=== PATIENT | female | born 1960 | race Caucasian/White ===

== ENCOUNTER → 2017-02-17 | Day surgery (SDC) | payer OTHER ==
[~2017-02-17] MED LIST: BUPIVACAINE HCL PF 0.5% 10 ML VIAL ONE; CLINDAMYCIN PHOS 600 MG/4 ML VIAL ONE; KETOROLAC TROMETHAMINE 30 MG/ML (IVP) VIAL IV PUSH ONE; LACTATED RINGER'S 1000 ML INJ 1,000 ML ONE; MIDAZOLAM HCL 2 MG/2 ML VIAL ONE; NS 100 ML (PAB BAG) 100 ML IV ONE; ONDANSETRON HCL 4 MG/2 ML VIAL IV PUSH ONE; PROPOFOL 200 MG/20 ML AMP IV ONE; ceFAZolin 2 GM PREMIX 50 ML ONE
--- NOTE | 2017-02-17 12:01 | MP ---
cc: JESSICA ST DATE OF SURGERY 02/17/[address] Jessica [address] [employer] SUPERVISOR None. PREOPERATIVE DIAGNOSIS Left foot second metatarsophalangeal joint acute dislocation with plantar plate tear. POSTOPERATIVE DIAGNOSIS Left foot second metatarsophalangeal joint acute dislocation with plantar plate tear. PROCEDURES PERFORMED 1. Open reduction of second metatarsophalangeal joint 2. Plantar plate repair. PATHOLOGY SENT None. ANESTHESIA General. HEMOSTASIS Pneumatic ankle tourniquet at 250 mmHg. ESTIMATED BLOOD LOSS Less than 5 mL. MATERIALS USED Arthrex Viper plantar plate repair care with associated FiberWire, 3-0 Monocryl, 3-0 Prolene. INJECTABLES 10 cc of 0.5% Marcaine plain. COMPLICATIONS None. INDICATIONS Ms. Regalado is a patient well-known to me. She had acute dorsal hammertoe pain about six weeks ago and was provided with a hammertoe splint and a gel sleeve. She was at a concert approximately one week ago wearing the gel sleeve but not the hammertoe splint. She was doing an excessive amount of walking and felt a pop on the bottom of the foot. She then noted shortly after that some swelling and a dorsal medial dislocation of the second toe. She was seen in the office where I was able to do a hematoma block and close reduced the digit but she could not have surgery medially, she had a work event that felt was necessary for her to be at. She did attend this event with the toe taped an din a surgical shoe but it did re-dislocate. I explained to her today's procedure, the possible need to cut the bone if the plantar plate could not be accessed as well as the possible need to pin in the digit. The consent was signed. The procedure was explained. There were no guarantees given. PROCEDURE Under mild sedation the patient was brought into the operating room, placed on the operating table in a supine position. Following IV sedation, pneumatic ankle tourniquet was placed around the left ankle. The foot was then scrubbed, prepped and draped in the usual aseptic manner. Attention was directed to the dorsal aspect of the second metatarsophalangeal joint where the digit was dorsally and medially dislocated. The incision was deepened through the skin and subcutaneous tissue with care being taken to retract and address any vital neurovascular structures. The joint was then visualized. All cartilage was intact and healthy. The toe was distracted dorsally and medially, then distracted distally and reduced into a more plantar lateral position. This allowed visualization of the plantar plate which was very clearly torn, there was a large tear; however, it only involved in the lateral half of the plantar plate. McGlamry elevator was used to free the lateral half of the collateral attachments and plantar attachments of the metatarsal head. Two 0.062 K-wires were placed, one in the phalanx, one in the metatarsal head and spread in order to get better visualization of the plate. Once the plate was easily visualized, a [employer] suture projector was used to insert the looped piece of FiberWire at the root of the plantar plate and allowing it to be locked dorsally. A third 0.052 K-wire was then introduced to the base of the proximal phalanx from dorsal medial to plantar lateral, the K-wire was then removed and the suture lasso was then placed through the created tunnel. One piece of the FiberWire was then passed through the wire loop and pulled dorsally so that there was one piece of the FiberWire now on the dorsal medial aspect. The second K-wire that was in the proximal base was then removed and again a FiberWire tendon passer was placed through that hole and the second piece of the FiberWire was obtained and pulled through as it was now in the dorsal central aspect of the proximal phalanx. I was able to tighten the knot and easily see that the plantar plate was being distracted under the proximal phalanx in a distal orientation. The toe was then placed in a concentrical plantar flexed position and the both pieces of FiberWire were hand-tied. The assistant professor of archaeology then released and plantar flexory position and the toe did hold in place. The joint was much tighter and the plantar plate appeared to be well intact while being put through a light range of motion. The area was then flushed with copious amounts of sterile saline. The collateral ligaments were reapproximated using 3-0 Monocryl. Deep and subcutaneous tissues were reapproximated using 3-0 Monocryl, the skin was reapproximated using 3-0 Prolene. Fluoroscopy was used to ensure proper orientation of the joint and there was noted anatomical alignment. The pneumatic ankle tourniquet was released and there was a prompt hyperemic response to all digits of the left foot. 10 cc of 0.5% Marcaine plain were then injected in both the first and second interspaces and a sterile dressing, Adaptic, 4x4s, Ina and Yaw wrap was applied. The patient tolerated the procedure and anesthesia well. She will be discharged home with written and oral postoperative instructions. Jessica LAL/BENJAMIN /9:33 AM /11:33 AM REJI
== END | disposition home or self-care (01) ==
LOC: ESDC 06:29
PROVIDERS: ATTEND Podiatrist Foot & Ankle Surgery
DX: S93.125A Dislocation of metatarsophalangeal joint of left lesser toe(s), initial encounter (principal); M24.175 Other articular cartilage disorders, left foot
CPT/HCPCS: 01470; 01480; 28313; 28645; 73620; 76000; C1713; J1885; J2250; J2405; J3010; J7120; J0690